=== PATIENT | male | born 1985 | race Native Hawaiian/Other Pacific Islander ===

== ENCOUNTER 2017-03-10 10:46 | Emergency (ER) | payer OTHER ==
[~2017-03-10] VITALS: Ht 167.6 cm; Wt 71.6 kg
[2017-03-10 10:56] VITALS: BP 138/76; PULSE 87; RESP 16; TEMP 97.9; O2SAT 100
--- NOTE | 2017-03-10 11:25 | PD ---
HPI Chief Complaint: Injury Time Seen by Provider: 11:07 Travel History International Travel<30 days: No Contact w/Intl Traveler<30days: No Traveled to known affect area: No History of Present Illness HPI 32-year-old right-hand dominant male presents to the ED for evaluation of 6/10 pain of the right middle finger. Described as throbbing, worsened by attempted range of motion. No alleviating factors reported. Onset this morning after the patient fell at work. He is unsure how he landed. He endorses pain and limitation to range of motion of the finger. He denies numbness, weakness. He' s never injured this finger before. No treatment attempted before arrival. [facility] Social History Alcohol Use: No Tobacco Use: Yes Substance Use: No Allergies-Medications (Allergen,Severity, Reaction): Coded Allergies: shrimp (Verified Allergy, Unknown, 03/10/17) Reported Meds & Prescriptions Reported Meds & Active Scripts Active Ibuprofen 800 Mg Tab 800 Mg PO Q8H PRN Review of Systems Except as stated in HPI: all other systems reviewed are Neg Physical Exam Narrative GENERAL: Well-nourished, well-developed male in no acute distress.. SKIN: Focused skin assessment warm/dry. HEAD: Normocephalic. EYES: No scleral icterus. No injection or drainage. NECK: Supple, trachea midline. No JVD or lymphadenopathy. CARDIOVASCULAR: Regular rate and rhythm without murmurs, gallops, or rubs. RESPIRATORY: Breath sounds equal bilaterally. No accessory muscle use. GASTROINTESTINAL: Abdomen soft, non-tender, nondistended. MUSCULOSKELETAL: No cyanosis, or edema. FOCUSED RIGHT UPPER EXTREMITY EXAM: 2+ radial pulse. Patient is able to flex and extend the wrist. No snuffbox tenderness. There is visible deformity and tenderness to palpation of the PIP joint of the middle finger. Patient is unable to flex the finger. He has strong finger to thumb opposition on the other digits. Sensation intact to light touch distally on each finger. Cap refill less than 2 seconds on each finger. BACK: Nontender without obvious deformity. No CVA tenderness. Data Data Last Documented VS Vital Signs Date Time Temp Pulse Resp B/P (MAP) Pulse Ox O2 Delivery O2 Flow Rate FiO2 03/10/17 10:56 97.9 87 16 138/76 (96) 100 Orders Orders Finger ([id number]) (03/10/17 11:25) Ice/Cold Pack (03/10/17 11:25) Ct Hand W/O Contrast (03/10/17 ) Support Splint (03/10/17 13:58) Ed Discharge Order (03/10/17 14:26) Finger Splint (03/10/17 ) MDM Medical Decision Making Medical Screen Exam Complete: Yes Emergency Medical Condition: Yes Differential Diagnosis Dislocation versus fracture versus contusion versus musculoskeletal pain versus other Narrative Course 32-year-old right-hand dominant male presents to the ED for evaluation of 6/10 pain of the right middle finger. Described as throbbing, worsened by attempted range of motion. No alleviating factors reported. Onset this morning after the patient fell at work. He is unsure how he landed. He endorses pain and limitation to range of motion of the finger. Vitals reviewed. On exam there is visible deformity, edema, tenderness of the PIP joint of the middle finger of the right hand. X-rays reveal a displaced fracture of the head of the proximal phalanx. I discussed the case with Dr. Estveez, on-call hand surgeon. She recommends a CT of the hand, splinting and will follow-up the patient in the office. I discussed this plan with the patient who is agreeable. Splint was applied. Patient was prescribed a short course of anti-inflammatory medications. He was provided detailed follow-up instructions. He indicated understanding of these instructions. He is stable and discharged home. Diagnosis Primary Impression: Closed fracture of proximal phalanx of right middle finger Qualified Codes: S62.642A - Nondisplaced fracture of proximal phalanx of right middle finger, initial encounter for closed fracture Referrals: Lorelei Estevez MD Patient Instructions: Finger Fracture (ED), General Instructions Additional Instructions: Rest, ice, elevate the extremity. Apply ice no longer than 10-15 minutes per hour a few times a day. 800 mg ibuprofen up to 3 times a day as needed for pain. To not remove the splint for any reason. Call Dr. Estevez's office today for an appointment ANA. Ask for Jeanette. Return to the ED for any urgent or emergent medical condition. Med/Other Pt SpecificInfo: Prescription(s) given Scripts Ibuprofen (Ibuprofen) 800 Mg Tab 800 MG PO Q8H Y for Pain/Inflammation, #15 TAB 0 Refills Prov: Kishore Cazares MD 03/10/17 Disposition: 01 DISCHARGE HOME Condition: Stable Dannielle Gupta Mar 10, 2017 11:25
--- NOTE | 2017-03-10 11:54 | RADRPT ---
EXAM DATE/TIME: 03/10/2017 11:30 [facility] COMPARISON: No previous studies available for comparison. INDICATIONS : Slipped and fell this morning, right 3rd digit pain. MEDICAL HISTORY : None. SURGICAL HISTORY : None. ENCOUNTER: Initial ACUITY: 1 day PAIN SCORE: 8/10 LOCATION: Right 3rd digit FINDINGS: There is evidence of an acute mildly displaced fracture involving the distal portion of the right thi rd proximal phalanx with involvement of the articular surface. Surrounding soft tissue swelling is no tara. CONCLUSION: Acute mildly displaced fracture involving the distal portion of the right third proximal phalanx with involvement of the articular surface and surrounding soft tissue swelling. Iglesia Cueva MD on March 10, 2017 at 11:51 Board Certified Radiologist. This report was verified electronically.
--- NOTE | 2017-03-10 14:01 | RADRPT ---
EXAM DATE/TIME: 03/10/2017 13:02 [facility] COMPARISON: FINGER RIGHT 3RD DIGIT ([id number]), March 10, 2017, 11:30. INDICATIONS : Trauma. Fell at work. Pain and swelling 3rd digit of right hand. RADIATION DOSE: 12.22 CTDIvol (mGy) MEDICAL HISTORY : None SURGICAL HISTORY : None. ENCOUNTER: Initial ACUITY: 1 day PAIN SCALE: 7/10 LOCATION: Right hand TECHNIQUE: Volumetric scanning of the hand was performed. Using automated exposure control and adjustment of th e mA and/or kV according to patient size, radiation dose was kept as low as reasonably achievable to obtain optimal diagnostic quality images. DICOM format image data is available electronically for re view and comparison. FINDINGS: There is a complete fracture of the third proximal phalanx which extends intra-articularly into the PIP joint of the displaced bony fragment at the site and slight displacement. CONCLUSION: Intra-articular third proximal phalangeal fracture. Marcia Mittal MD on March 10, 2017 at 13:56 Board Certified Radiologist. This report was verified electronically.
[2017-03-10] MEDS ORDERED: IBUP1TAB7 PO (14:21)
== END 2017-03-10 14:47 | disposition home or self-care (01) ==
LOC: PHEFT 10:46
DX: S62.612A Displaced fracture of proximal phalanx of right middle finger, initial encounter for closed fracture (principal); Z72.0 Tobacco use; W19.XXXA Unspecified fall, initial encounter; Y99.0 Civilian activity done for income or pay
CPT/HCPCS: 29130; 73140; 73200